=== PATIENT | female | born 1975 | race Caucasian/White ===

== ENCOUNTER 2017-08-10 11:27 | Emergency (ER) | payer BC ==
[2017-08-10 11:42] VITALS: BP 158/108; PULSE 97; TEMP 98; BMI 31.7
--- NOTE | 2017-08-10 12:40 | PDOC ---
History of Present Illness - General Chief Complaint: Injury Stated Complaint: RT ANKLE PAIN Time Seen by Provider: 08/10/17 11:28 - History of Present Illness Initial Comments: 08/10/17 12:35 42-year-old female presents to the emergency department with right ankle pain after a slip and fall. Patient reports she was walking to her car when she slipped on ice and her ankle rolled in. She then fell to the ground in a controlled manner. Denies any head strike, no other injuries. Has not taken anything for pain. Fall occurred 40 minutes prior to arrival to the emergency department. Patient has otherwise been in her usual state of good health, denies any fevers, chills, chest pain, shortness of breath, weakness or numbness. Past History - Past Medical History Allergies/Adverse Reactions: Allergies Allergy/AdvReac Type Severity Reaction Status Date / Time doxycycline Allergy Verified 08/10/17 11:29 Home Medications: Ambulatory Orders Lisinopril 20 mg PO DAILY 08/10/17 Norethindrone AC-Eth Estradiol [Loestrin 21 1-20 Tablet] 1 each PO DAILY COPD: No HTN: Yes - Suicide/Smoking/Psychosocial Hx Smoking History: Never smoked Have you smoked in the past 12 months: No Information on smoking cessation initiated: No Hx Alcohol Use: No Drug/Substance Use Hx: No Substance Use Type: None Review of Systems - Review of Systems Comments:: 08/10/17 12:37 GENERAL/CONSTITUTIONAL: No fever or chills. No weakness. HEAD, EYES, EARS, NOSE AND THROAT: No change in vision. No ear pain or discharge. No sore throat. GASTROINTESTINAL: No nausea, vomiting, diarrhea or constipation. GENITOURINARY: No dysuria, frequency, or change in urination. CARDIOVASCULAR: No chest pain or shortness of breath. RESPIRATORY: No cough, wheezing, or hemoptysis. MUSCULOSKELETAL: + R ankle pain. No neck or back pain. SKIN: No rash NEUROLOGIC: No headache, vertigo, loss of consciousness, or change in strength/ sensation. ENDOCRINE: No increased thirst. No abnormal weight change. HEMATOLOGIC/LYMPHATIC: No anemia, easy bleeding, or history of blood clots. ALLERGIC/IMMUNOLOGIC: No hives or skin allergy. *Physical Exam - Vital Signs Last Vital Signs Temp Pulse Resp BP Pulse Ox 98 F 97 H 20 158/108 99 03/10/18 11:28 08/10/17 11:28 08/10/17 11:28 08/10/17 11:28 08/10/17 11:28 - Physical Exam Comments: 08/10/17 12:37 GENERAL: Awake, alert, and fully oriented, in no acute distress HEAD: No signs of trauma EYES: PERRLA, EOMI, sclera anicteric, conjunctiva clear ENT: Auricles normal inspection, hearing grossly normal, nares patent, oropharynx clear without exudates. Moist mucosa NECK: Normal ROM, supple, no lymphadenopathy, JVD, or masses LUNGS: Breath sounds equal, clear to auscultation bilaterally. No wheezes, and no crackles HEART: Regular rate and rhythm, normal S1 and S2, no murmurs, rubs or gallops ABDOMEN: Soft, nontender, normoactive bowel sounds. No guarding, no rebound. No masses EXTREMITIES: R ankle with FROM, 5/5 strength plantar and dorsiflexion, 2+ DP and TP pulses, +ttp to distal fibula, and mild edema around lateral malleolus. No bony deformities. Able to bear weight. Otherwise-Normal range of motion, no edema. No clubbing or cyanosis. No cords, erythema, or tenderness NEUROLOGICAL: Normal speech, cranial nerves intact, negative pronator drift, 5/ 5 strength in all 4 extremities, normal sensation to light touch in all 4 extremities, normal cerebellar exam, normal gait, normal reflexes and tone SKIN: Warm, Dry, normal turgor, no rashes or lesions noted. ED Treatment Course - RADIOLOGY Radiology Studies Ordered: Category Date Time Status ANKLE & FOOT-RIGHT* [RAD] Stat Radiology 08/10/17 11:39 Completed Medical Decision Making - Medical Decision Making 08/10/17 11:38 42-year-old female presents with ankle pain after a slip and fall. Exam with edema and tenderness palpation to the distal fibula. Likely ankle sprain, however we'll obtain an x-ray to rule out bony injury. Ankle is neurovascularly intact. Repeat blood pressure on my exam is 138/82. 08/10/17 12:39 X-ray negative, likely ankle sprain. Pain is well controlled. Otilio wrap placed for comfort, referral provided for orthopedic surgery follow-up. Patient requests discharge home. I discussed the physical exam findings, ancillary test results and final diagnoses with the patient. I answered all of the patient's questions. The patient was satisfied with the care received and felt comfortable with the discharge plan and treatment plan. The patient will call their primary care physician within 24 hours to arrange follow-up and will return to the Emergency Department with any new, persistent or worsening symptoms. *DC/Admit/Observation/Transfer Diagnosis at time of Disposition: Ankle sprain - Discharge Dispostion Disposition: HOME Admit: No - Referrals Referrals: Garcia Pozo MD [Staff Physician] - - Patient Instructions Printed Discharge Instructions: DI for Ankle Pain Additional Instructions: Rest, ice, and elevate your ankle. Take naproxen as needed for pain, a prescription has been sent here pharmacy. Follow-up with Dr. Pozo (orthopedics) within 1 week. Return to the emergency department if you have any new, worsening or concerning symptoms. - Post Discharge Activity - Attestations Physician Attestion: 08/10/17 12:41 I, Dr. Escobar Coley MD, attest that this document has been prepared under my direction and personally reviewed by me in its entirety. I further attest, that it accurately reflects all work, treatment, procedures and medical decision -making performed by me.
== END 2017-08-10 12:49 | disposition home or self-care (01) ==
LOC: FER 11:27
DX: S93.401A Sprain of unspecified ligament of right ankle, initial encounter (principal); X58.XXXA Exposure to other specified factors, initial encounter; Y93.9 Activity, unspecified; Y92.9 Unspecified place or not applicable; I10 Essential (primary) hypertension
CPT/HCPCS: 73610-TC-RT-FY; 73630-TC-RT-FY; 99282-25